=== PATIENT | female | born 2000 | race Caucasian/White ===

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

== ENCOUNTER 2018-03-18 21:02 | Emergency (ER) | payer MEDICAID ==
[~2018-03-18] VITALS: Ht 157.5 cm; Wt 49.9 kg
[~2018-03-18 21:02] MED LIST changes: +TYLENOL EXTRA500 MG ORAL
--- NOTE | 2018-03-18 21:26 | NUR ---
ED Nurse Note: Not in WR.
--- NOTE | 2018-03-18 22:06 | Emergency Room Report ---
History of Present Illness General Chief Complaint: Abdominal Pain Source: Patient Present Illness HPI Patient presents with suprapubic pain and being told that someone she was with his is being treated for either gonorrhea or chlamydia. She has a slight vaginal discharge. The pain is rated 8/10. Her last period was March 03 and was normal for her. She denies any dysuria. She's never been before. She denies prior exposure to sexually transmitted diseases. There is no skin rashes, fevers, chills. No upper respiratory infection at this time. No joint pain, throat pain, eye discharge. Allergies: Coded Allergies: No Known Allergies (Unverified , 01/20/16) Patient History Past Medical History: see triage record Social History: Reports: smoking Social History Narrative At home and allegedly not employed Last Menstrual Period: 03/03/18 Now: No : 0 Reviewed Nursing Documentation: PMH: Agreed; PSxH: Agreed Nursing Documentation-PMH Past Medical History: No Stated History Hx Hypertension: Yes Hx Asthma: Yes Review of Systems All Other Systems: negative except mentioned in HPI Physical Exam Vital Signs Date Time Temp Pulse Resp B/P (MAP) Pulse Ox O2 Delivery O2 Flow Rate FiO2 03/18/18 21:14 98.2 84 16 147/96 96 Room Air Sp02 EP Interpretation: reviewed, normal General Appearance: well appearing, no apparent distress, GCS 15 Head: normocephalic, atraumatic Eyes: bilateral eye normal inspection, bilateral eye PERRL ENT: hearing grossly normal, normal voice Neck: full range of motion, supple Respiratory: no respiratory distress, speaking full sentences Cardiovascular #1: regular rate, rhythm Cardiovascular #2: 2+ radial (R) Gastrointestinal: no guarding, no rebound, tenderness - Suprapubic Genitourinary: no CVA tenderness, bladder normal, os closed, uterus normal, other - Foul odor and white discharge, no cervical motion tenderness Musculoskeletal: back normal, digits/nails normal, no calf tenderness Neurologic: alert, oriented x3, normal gait, grossly normal Psychiatric: mood/affect normal Skin: no rash, other - Tattoos Medical Decision Making Diagnostic Impression: Primary Impression: Exposure to STD Additional Impression: Trichomonal infection ER Course Patient presents after being exposed to sexually transmitted disease with lower abdominal pain. Exam excludes pelvic inflammatory disease. Differential includes chlamydia, gonorrhea amongst others. In addition we need to exclude urinary tract infection and . Urinalysis and wet mount ordered. Due to the history and the patient will be treated with Rocephin and azithromycin. Urinalysis and wet mount consistent with trichomonas and possible yeast. Metronidazole given in the emergency department. Patient is improved with treatment. Discussed the need for follow-up and also for use of barrier protection during intercourse. Patient is improved and questions answered with emphasis on follow-up. Patient stable for outpatient observation and treatment. Laboratory Tests Test 03/18/18 21:53 Urine Color Pale yellow Urine Appearance Clear Urine pH 5 (4.5-8.0) Urine Specific Crowley 1.025 (1.005-1.035) Urine Protein Negative (NEGATIVE) Urine Glucose (UA) Negative (NEGATIVE) Urine Ketones 1+ (NEGATIVE) H Urine Blood Negative (NEGATIVE) Urine Nitrite Negative (NEGATIVE) Urine Bilirubin Negative (NEGATIVE) Urine Urobilinogen 1 MG/DL (0.0-1.0) H Urine Leukocyte Esterase 3+ (NEGATIVE) H Urine RBC 2-4 /HPF (0 - 2) H Urine WBC 10-15 /HPF (0 - 2) H Urine Squamous Epithelial Cells Few /LPF (NONE/OCC) Urine Bacteria Moderate /HPF (NONE) H Urine Trichomonas Few /HPF (NONE) H Urine Yeast Few /HPF (NONE) H Urine HCG, Qualitative Negative (NEGATIVE) Chlamydia trachomatis RNA Pending Neisseria gonorrhoeae RNA Pending Microbiology Date/Time Source Procedure Growth Status 03/18/18 22:10 Vaginal Wet Prep - Final Complete Last Vital Signs Date Time Temp Pulse Resp B/P (MAP) Pulse Ox O2 Delivery O2 Flow Rate FiO2 03/19/18 00:03 98.2 69 16 145/93 99 Room Air 03/19/18 00:03 99 Status: improved Disposition: HOME, SELF-CARE Condition: Improved Scripts Clotrimazole (GYNE-LOTRIMIN*) 45 Gm Cream.appl 1 APPLIC VG QHS, #45 GM 0 Refills Prov: Gutierrez Campbell MD 03/18/18 Metronidazole* (FLAGYL*) 500 Mg Tablet 500 MG ORAL BID, #14 TAB Prov: Gutierrez Campbell MD 03/18/18 Gutierrez Campbell MD Mar 18, 2018 22:06
[2018-03-18 22:08] VITALS: BP 147/96
[2018-03-18 22:11] LABS: BILIRUBIN, URINE NEGATIVE (NEGATIVE); COLOR,URINE PALE YELLOW; GLUCOSE, URINE (UA) NEGATIVE (NEGATIVE); KETONES,URINE 1+ (NEGATIVE); LEUKOCYTE ESTERASE ,URINE 3+ (NEGATIVE); NITRITE,URINE NEGATIVE (NEGATIVE); PH,URINE 5 (4.5-8.0); PROTEIN,URINE NEGATIVE (NEGATIVE); UROBILINOGEN,URINE 1 MG/DL (0.0-1.0)
[2018-03-18 22:12] LABS: APPEARANCE,URINE CLEAR
[2018-03-18] MEDS ORDERED: Lidocaine 1% MPF 10mg/ml 5ml INJ ONE (22:15)
[2018-03-18] MEDS ORDERED: Azithromycin 250mg tab ORAL ONE (22:15)
--- NOTE | 2018-03-18 22:16 | NUR ---
ED Nurse Note: Pelvic exam done by Dr. Campbell with this nurse in attendance, pt tolerated well; wet mount spec to lab.
--- NOTE | 2018-03-18 22:18 | NUR ---
ED Nurse Note: Patient is here for STD check , no symptoms.
[2018-03-18] MEDS ORDERED: metroNIDAZOLE 500mg tab ORAL ONE (23:00)
[2018-03-18] MEDS ORDERED: METRONIDAZOLE500 MG ORAL (23:36)
[2018-03-18] MEDS ORDERED: GYNE-LOTRIMIN45 GM VG (23:36)
[2018-03-19 00:03] VITALS: BP_SYST 145; BP_SYST 147; BP_DIAS 93; BP_DIAS 96
--- NOTE | 2018-03-19 00:04 | NUR ---
ED Nurse Note: PT is medically cleared per ERMD order. pt is stable for transfer. pt status condition and vital signs are reported to ERMD prior to DC. pt vital signs are stable. pt is alert and oriented times 4. pt left with all belongings, including DC ntoes and prescriptions. pt was able to teach back and understands DC notes and prescription. pt is instructed to follow up with primary MD as soon as possible, pt is instructed to return to ER if any variance in condition. ID band removed. pt is able to ambulate. pt is alert and oriented times 4. pt is stable for DC as per ERMD orders.
== END 2018-03-19 00:16 | disposition home or self-care (01) ==
LOC: EMR 21:56
DX: Z20.2 Contact with and (suspected) exposure to infections with a predominantly sexual mode of transmission (principal); A59.9 Trichomoniasis, unspecified; I10 Essential (primary) hypertension; J45.909 Unspecified asthma, uncomplicated
CPT/HCPCS: 81003; 81025; 87086; 87210; 87491; 87590; 96372; 96374; 99284; J0696; Q0144

== ENCOUNTER 2018-10-08 12:45 | Emergency (ER) | payer MEDICAID ==
[~2018-10-08] VITALS: Ht 154.9 cm; Wt 49.9 kg
[~2018-10-08 12:45] MED LIST changes: +GYNE-LOTRIMIN45 GM VG; +METRONIDAZOLE500 MG ORAL
[2018-10-08 12:47] VITALS: BP 136/94
--- NOTE | 2018-10-08 12:48 | NUR ---
ED Nurse Note: Patient walked in to ER due to lower abdominal pain and vaginal discharge x 1 week. Patient describes her discharge as blood clots. Patient went to [place] ER and diagnosed with Trichomoniasis and prescribed her couple of antibiotics. Alert and oriented x4, verbally reasponsive. Afebrile.
[2018-10-08] MEDS ORDERED: NKM (12:51)
--- NOTE | 2018-10-08 13:02 | Emergency Room Report ---
History of Present Illness General Chief Complaint: Female Urogenital Problems Source: Patient Present Illness HPI 18 YO Female presents to the ED c/o persistent clear-whitish vaginal d/c x 1 week s/p taking single dose treatment for Trich last week. Pt. reports symptoms have not changed. She denies odor. Reports 5/10 in severity abdominal pain that is described as a dull ache without tenderness. Denies dysuria, hematuria or . She reports she is currently on her cycle. She states she did begin having some vaginal itching without obvious rash or genital lesions. She denies adnexal pain/tenderness, joint pain or swollen tender lymph nodes. She Denies suspicion of STI, she just tested negative and has not had intercourse since testing. No aggravating or relieving factors at this time. Denies N/V/F/C. Denies constipation or diarrhea. Allergies: Coded Allergies: No Known Allergies (Unverified , 01/20/16) Patient History Past Medical History: see triage record Past Surgical History: none Pertinent Family History: none Last Menstrual Period: 09/17/18 Now: No Reviewed Nursing Documentation: PMH: Agreed; PSxH: Agreed Nursing Documentation-PMH Past Medical History: No History, Except For Hx Hypertension: Yes Hx Asthma: Yes Review of Systems All Other Systems: negative except mentioned in HPI Physical Exam Vital Signs Date Time Temp Pulse Resp B/P (MAP) Pulse Ox O2 Delivery O2 Flow Rate FiO2 10/08/18 12:46 98.2 96 16 136/94 (108) 98 Room Air Sp02 EP Interpretation: reviewed, normal General Appearance: no apparent distress, alert, GCS 15, non-toxic Head: normocephalic, atraumatic Eyes: bilateral eye normal inspection, bilateral eye PERRL ENT: hearing grossly normal, normal voice Neck: full range of motion Respiratory: lungs clear, normal breath sounds, speaking full sentences Cardiovascular #1: regular rate, rhythm Gastrointestinal: normal bowel sounds, non tender, soft, non-distended Genitourinary: normal inspection, no CVA tenderness, adnexa normal, os closed, other - Negative CMT. pt. currently on cycle, dark blood in the vaginal vault, no obivous d/c. no external genital lesions, no LAD. Musculoskeletal: gait/station normal, normal range of motion, non-tender Neurologic: alert, oriented x3, responsive, motor strength/tone normal, sensory intact, speech normal, grossly normal Psychiatric: judgement/insight normal Lymphatic: no adenopathy Medical Decision Making PA Attestation Dr. Slater is my supervising Physician whom patient management has been discussed with. Diagnostic Impression: Primary Impression: Leukorrhea, vaginal, noninfectious ER Course 18 YO Female presents to the ED c/o persistent clear-whitish vaginal d/c x 1 week s/p taking single dose treatment for Trich last week. Pt. reports symptoms have not changed. She denies odor. Reports 5/10 in severity abdominal pain that is described as a dull ache without tenderness. Denies dysuria, hematuria or . She reports she is currently on her cycle. She states she did begin having some vaginal itching without obvious rash or genital lesions. She denies adnexal pain/tenderness, joint pain or swollen tender lymph nodes. She Denies suspicion of STI, she just tested negative and has not had intercourse since testing. No aggravating or relieving factors at this time. Denies N/V/F/C. Denies constipation or diarrhea. Ddx considered but are not limited to UTi , Pyelo, STI, Stone, Cystitis, , ectopic, PID, or vaginitis just to name a few. Vital signs: are WNL, pt. is afebrile H&PE are most consistent with: Vaginitis -- trich, vs. BV, vs yeast, or normal leukorrhea ORDERS: - UA labs are attached -- RBC's consistent with being on cycle. -Urine UCG: Negative - Wet Mount : Negative for clue, trich or yeast, moderate epithelial, RBC's and WBC's--- most likely leukorrhea but will tx with single dose diflucan for itching symptoms and possible yeast vaginitis despite no yeast on wet mount. ED INTERVENTIONS: - None required at this time. -I do not identify an emergent condition at this time. With current presentation , pt. is stable for close outpatient follow up and conservative treatment. D/ w pt. to return promptly to ED with worsening or new symptoms.- Pt. verbalizes' understanding and agreement with proposed treatment plan. DISCHARGE: At this time pt. is stable for d/c to home. Will provide printed patient care instructions, and any necessary prescriptions. Care plan and follow up instructions have been discussed with the patient prior to discharge. discussed with the patient prior to discharge. Labs Test 10/08/18 13:00 Urine Color Pale yellow Urine Appearance Clear Urine pH 6 (4.5-8.0) Urine Specific Campbell 1.015 (1.005-1.035) Urine Protein Negative (NEGATIVE) Urine Glucose (UA) Negative (NEGATIVE) Urine Ketones Negative (NEGATIVE) Urine Blood 5+ (NEGATIVE) Urine Nitrite Negative (NEGATIVE) Urine Bilirubin Negative (NEGATIVE) Urine Urobilinogen Normal MG/DL (0.0-1.0) Urine Leukocyte Esterase Negative (NEGATIVE) Urine RBC 10-15 /HPF (0 - 2) Urine WBC 0 /HPF (0 - 2) Urine Squamous Epithelial Cells Moderate /LPF (NONE/OCC) Urine Bacteria Few /HPF (NONE) Urine HCG, Qualitative Negative (NEGATIVE) Last Vital Signs Date Time Temp Pulse Resp B/P (MAP) Pulse Ox O2 Delivery O2 Flow Rate FiO2 10/08/18 12:46 98.2 96 16 136/94 (108) 98 Room Air Disposition: HOME, SELF-CARE Condition: Stable Patient Instructions: Vaginitis Additional Instructions: Take medications as directed. Follow up with a Primary Care Provider in 3-5 days, even if your symptoms have resolved. Return sooner to ED if new symptoms occur, or current symptoms become worse. - Please note that this Emergency Department Report was dictated using [employer] driver technology software, occasionally this can lead to erroneous entry secondary to interpretation by the dictation equipment. Zena Trinh Oct 08, 2018 13:02
[2018-10-08 13:47] LABS: APPEARANCE,URINE CLEAR; BILIRUBIN, URINE NEGATIVE (NEGATIVE); COLOR,URINE PALE YELLOW; GLUCOSE, URINE (UA) NEGATIVE (NEGATIVE); KETONES,URINE NEGATIVE (NEGATIVE); LEUKOCYTE ESTERASE ,URINE NEGATIVE (NEGATIVE); NITRITE,URINE NEGATIVE (NEGATIVE); PH,URINE 6 (4.5-8.0); PROTEIN,URINE NEGATIVE (NEGATIVE); UROBILINOGEN,URINE NORMAL MG/DL (0.0-1.0)
[2018-10-08 14:15] VITALS: BP 126/88
[2018-10-08] MEDS ORDERED: DIFLUCAN200 MG ORAL (14:22)
[2018-10-08 14:36] VITALS: BP 126/88
--- NOTE | 2018-10-08 14:36 | NUR ---
ED Nurse Note: Pt cleared by ERMD for discharge. DC instructions/prescription was given and explained to pt and verbalized understanding of teachings. All medical deviecs such as ID band removed. Pt is AAO x4, ambulatory and left with all personal belongings.
== END 2018-10-08 14:36 | disposition home or self-care (01) ==
LOC: EMR 13:09
DX: N89.8 Other specified noninflammatory disorders of vagina (principal); J45.909 Unspecified asthma, uncomplicated; I10 Essential (primary) hypertension
CPT/HCPCS: 81003; 81025; 87210; 99283

== ENCOUNTER 2019-01-19 12:13 | Emergency (ER) | payer MEDICAID ==
[~2019-01-19] VITALS: Ht 154.9 cm; Wt 40.8 kg
[~2019-01-19 12:13] MED LIST changes: +DIFLUCAN200 MG ORAL; +NKM
[2019-01-19 12:20] VITALS: BP 177/121
--- NOTE | 2019-01-19 12:20 | NUR ---
ED Nurse Note: Pt brought into ER by friend for c/o cough, runny/bloody nose for the path month. Pt also c/o chest pressure and congestion. She notes mild pain only on inspiration. Pt is ambulatory, awake alert and oriented x4, breathing is unlabored. Pt connected to rn cardiac cath and placed in gown.
[2019-01-19] MEDS ORDERED: Omnipaque-300 100ml vial INJ PRN (12:30)
[2019-01-19] MEDS: Albuterol/Ipratropium 3ml neb HHN SCH ×4 (12:53→13:26)
[2019-01-19 13:02] LABS: EOSINOPHILS % (AUTO) 0.5 % (0.0-3.0); HEMATOCRIT 49.8 % (37.0-47.0); HEMOGLOBIN 16.7 G/DL (12.0-16.0); MEAN CORPUSCULAR VOLUME 89 FL (80-99); MONOCYTES % (AUTO) 8.3 % (1.0-10.0); NEUTROPHILS % (AUTO) 65.2 % (45.0-75.0); PLATELET COUNT 312 K/UL (150-450); RED BLOOD COUNT 5.59 M/UL (4.20-5.40); RED CELL DISTRIBUTION WIDTH 13.4 % (11.6-14.8); WHITE BLOOD COUNT 5.1 K/UL (4.8-10.8)
[2019-01-19 13:03] LABS: APPEARANCE,URINE SLIGHTLY CLOUDY; BILIRUBIN, URINE 1+ (NEGATIVE); COLOR,URINE BROWN; GLUCOSE, URINE (UA) NEGATIVE (NEGATIVE); KETONES,URINE 1+ (NEGATIVE); LEUKOCYTE ESTERASE ,URINE 1+ (NEGATIVE); NITRITE,URINE POSITIVE (NEGATIVE); PH,URINE 5 (4.5-8.0); PROTEIN,URINE 2+ (NEGATIVE); UROBILINOGEN,URINE 1 MG/DL (0.0-1.0)
[2019-01-19 13:04] LABS: ANION GAP 12 mmol/L (5-15); BLOOD UREA NITROGEN 7 mg/dL (7-18); CARBON DIOXIDE 29 MMOL/L (21-32); CHLORIDE 99 MMOL/L (98-107); CREATININE 0.8 MG/DL (0.55-1.30); POTASSIUM 3.7 MMOL/L (3.5-5.1); SODIUM 140 MMOL/L (136-145)
[2019-01-19 13:15] LABS: ALANINE AMINOTRANSFERASE 30 U/L (12-78); ALBUMIN 4.7 G/DL (3.4-5.0); ALBUMIN/GLOBULIN RATIO 1.1 (1.0-2.7); ALKALINE PHOSPHATASE 95 U/L (46-116); ASPARTATE AMINO TRANSFERASE 43 U/L (15-37)
--- NOTE | 2019-01-19 14:21 | Diagnostic Imaging Report ---
Indication: Abdominal pain Technique: Continuous helical transaxial imaging of the abdomen and pelvis was obtained from the lung bases to the pubic symphysis during intravenous contrast administration. Coronal 2-D reformats were also obtained. Study obtained in a Siemens sensation [address] Automatic Exposure Control was utilized. Total Dose length Product (DLP): 454.[address] Dose Index Volume (CTDIvol): 8.4 mGy Comparison: None Findings: The lung bases are clear. The liver is hypodense consistent with fatty infiltration. Gallbladder is mildly distended. There is prominence of the wall of the right hemicolon extending through to the transverse colon and part of the descending colon. The findings somewhat suspicious for colitis. There is no significant inflammation outside of the colon and no evidence of pneumatosis or free air. There is no evidence of bowel obstruction. There is no abscess identified. A small right renal cyst is noted. Uterus is present. There are bilateral ovarian cysts. IMPRESSION: Possible colitis with prominence of the wall of the colon. Evaluation is somewhat limited as the colon is diffusely nondistended The CT scanner at [facility] is accredited by the [employer] and the scans are performed using dose optimization techniques as appropriate to a performed exam including Automatic Exposure control.
--- NOTE | 2019-01-19 14:32 | Diagnostic Imaging Report ---
Indication: Cough Comparison: None A single view chest radiograph was obtained. Findings: Cardiomediastinal appearance is within normal limits for age. The lungs are clear. Pulmonary vascularity is appropriate. The diaphragmatic contour is smooth and costophrenic angles are sharp. No pleural effusions are identified. The bones are unremarkable. Impression: No acute findings
--- NOTE | 2019-01-19 14:39 | NUR ---
pt resting comfortably, no distress at this time. Pt denies any pain currently.
[2019-01-19 14:40] VITALS: BP 151/97
--- NOTE | 2019-01-19 14:45 | Emergency Room Report ---
History of Present Illness General Chief Complaint: General Complaint Source: Patient Present Illness HPI 18-year-old female with no significant past medical history who is a daily tobacco smoker here complaining of 1 month of cough and congestion as well as chest pressure. Patient is actively wheezing, reports that she has history of asthma however does not use her inhaler. Patient denies any drug use, when I asked her question whether she does cocaine as she has been experiencing dry nasal septum and bleeding she pauses for 1 second and then replies no. Does admit to use of marijuana. Does admit that she drinks on daily basis, complains of diffuse abdominal pain, and continuous intrauterine bleeding x3 months. Denies dizziness and headache at this time. Denies chest pain shortness of breath at this time. Denies urinary symptoms. Has not taken medication for symptom relief. Patient later tells my nurse Melanie that patient went to [facility] few weeks ago and was told that she was poisoned by his substance. Patient is sitting comfortably however has elevated heart rate and elevated blood pressure. Denies any history of hypertension and taking medication for her symptoms. Allergies: Coded Allergies: No Known Allergies (Unverified , 01/20/16) Patient History Past Medical History: see triage record Past Surgical History: unable to obtain Pertinent Family History: none Last Menstrual Period: 10/17/18 Now: No Immunizations: UTD Reviewed Nursing Documentation: PMH: Agreed; PSxH: Agreed Nursing Documentation-PMH Past Medical History: No History, Except For Hx Hypertension: Yes Hx Asthma: Yes - BRONCHITIS Review of Systems All Other Systems: negative except mentioned in HPI Physical Exam Vital Signs Date Time Temp Pulse Resp B/P (MAP) Pulse Ox O2 Delivery O2 Flow Rate FiO2 01/19/19 12:17 98.2 120 15 159/114 (129) 94 Room Air 01/19/19 12:47 21 Sp02 EP Interpretation: abnormal - Elevated blood pressure and heart rate General Appearance: no apparent distress, alert, GCS 15, non-toxic Head: normocephalic, atraumatic Eyes: bilateral eye normal inspection, bilateral eye PERRL ENT: hearing grossly normal, normal pharynx, no angioedema, normal voice Neck: full range of motion, supple, thyroid normal, no meningismus, no bony tend, supple/symm/no masses Respiratory: chest non-tender, no rhonchi, no respiratory distress, no retraction, no accessory muscle use, speaking full sentences, wheezing - Diffuse wheezing Cardiovascular #1: regular rate, rhythm, no edema, no murmur, normal capillary refill Cardiovascular #2: 2+ carotid (R), 2+ carotid (L), 2+ radial (R), 2+ radial (L) , 2+ dorsalis pedis (R), 2+ dorsalis pedis (L) Gastrointestinal: normal bowel sounds, non tender, soft, no mass, no organomegaly, no peritonitis, no bruit, non-distended, no guarding, no hernia, no pulsatile mass, no rebound Rectal: deferred Genitourinary: no CVA tenderness Musculoskeletal: back normal, normal range of motion, no calf tenderness, gait/ station normal, non-tender Neurologic: alert, motor strength/tone normal, oriented x3, sensory intact, responsive, speech normal Psychiatric: normal inspection, judgement/insight normal, memory normal Skin: no rash Lymphatic: no adenopathy Medical Decision Making PA Attestation All my diagnosis and treatment plans were reviewed ad discussed with my supervising physician Dr. Cullen Diagnostic Impression: Primary Impression: Acute bronchitis, bacterial Additional Impressions: DUB (dysfunctional uterine bleeding) Cocaine use UTI (urinary tract infection) ER Course 18-year-old female with no significant past medical history who is a daily tobacco smoker here complaining of 1 month of cough and congestion as well as chest pressure. Patient is actively wheezing, reports that she has history of asthma however does not use her inhaler. Patient denies any drug use, when I asked her question whether she does cocaine as she has been experiencing dry nasal septum and bleeding she pauses for 1 second and then replies no. Does admit to use of marijuana. Does admit that she drinks on daily basis, complains of diffuse abdominal pain, and continuous intrauterine bleeding x3 months. Denies dizziness and headache at this time. Denies chest pain shortness of breath at this time. Denies urinary symptoms. Has not taken medication for symptom relief. Patient later tells my nurse Melanie that patient went to [facility] few weeks ago and was told that she was poisoned by his substance. Patient is sitting comfortably however has elevated heart rate and elevated blood pressure. Denies any history of hypertension and taking medication for her symptoms. Ddx considered but are not limited to: bronchitis, PNA, URI viral, bacterial bronchitis, anemia, ectopic , dysfunctional uterine bleeding Vital signs: are WNL, pt. is afebrile H&PE are most consistent with: Acute bronchitis bacterial due to smoking tobacco , cocaine use, tachycardia secondary to use, DU B, incidental finding of UTI ORDERS: Chest pain work-up, abdominal CT scan, azithromycin, Phenergan, albuterol, ED INTERVENTIONS: Prednisone, albuterol ipratropium treatment, Rocephin, NS bolus, Zofran DISCHARGE: At this time pt. is stable for d/c to home. Will provide printed patient care instructions, and any necessary prescriptions. Care plan and follow up instructions have been discussed with the patient prior to discharge. Patient heart rate remained fluctuating and reducing on the course of her visit to the emergency room. Elevated heart rate secondary to cocaine use. Patient no distress, and after consulting with my supervising physician Dr. Perez, it was decided to discharge the patient, and have her follow-up with her primary care provider. If worsening symptoms return to the emergency room. EKG Diagnostic Results Rate: tachycardiac Rhythm: NSR ST Segments: no acute changes Other Impression No acute ST changes Chest X-Ray Diagnostic Results Chest X-Ray Diagnostic Results : Chest X-Ray Ordered: Yes # of Views/Limited/Complete: 1 View Indication: Shortness of Breath EP Interpretation: Yes ANUPAM Xray: Interpretation reviewed, by supervising MD, and agrees with findings. Interpretation: no consolidation, no effusion, no pneumothorax Impression: No acute disease Electronically Signed by: Lucas Mcbride PA-C CT/MRI/US Diagnostic Results CT/MRI/US Diagnostic Results : Imaging Test Ordered: CT abdomen pelvis Impression Within normal limits Last Vital Signs Date Time Temp Pulse Resp B/P (MAP) Pulse Ox O2 Delivery O2 Flow Rate FiO2 01/19/19 13:54 102 12 99 01/19/19 13:27 Room Air 21 01/19/19 12:20 98.2 177/121 Disposition: HOME, SELF-CARE Condition: Stable Scripts Albuterol Sulfate (VENTOLIN HFA) 18 Gm Hfa.aer.ad 2 PUFFS INH EVERY 6 HOURS, #18 GM 0 Refills Prov: Lucas Sauceda 01/19/19 Promethazine Hcl (PROMETHAZINE HCL*) 6.25 Mg/5 Ml Syrup 5 ML ORAL Q6H, #120 ML 0 Refills Prov: Lucas Sauceda 01/19/19 Azithromycin* (ZITHROMAX*) 250 Mg Tablet 250 MG ORAL DAILY, #6 TAB 0 Refills Take two tables once daily for 1 day, then one tablet once daily for 4 days. Prov: Lucas Sauceda 01/19/19 Referrals: NOT CHOSEN IPA/MD,REFERRING (PCP) Patient Instructions: Acute Bronchitis, [id number], Dysfunctional Uterine Bleeding, Stimulant Use Disorder-Cocaine, Urinary Tract Infection, [id number] Additional Instructions: Take medication as directed, follow-up with your primary care provider, if worsening symptoms return to the emergency room Lucas Sauceda Jan 19, 2019 14:45
[2019-01-19] MEDS ORDERED: VENTOLIN HFA18 GM INH (14:46)
[2019-01-19] MEDS ORDERED: ZITHROMAX250 MG ORAL (14:46)
[2019-01-19] MEDS ORDERED: PROMETHAZI6.25 MG/1 ORAL (14:46)
--- NOTE | 2019-01-19 15:54 | NUR ---
ED Nurse Note: ANUPAM Zavala, confirmed with mixed ceftriaxone 250mg mixed with 50ml of NS and give 100ml/hr.
[2019-01-19] MEDS ORDERED: NS 250 ML IVPB ONE (16:00)
[2019-01-19] MEDS ORDERED: cefTRIAXone 1 GM in NS 55 ML IVPB ONE (16:15)
[2019-01-19 17:26] VITALS: BP 124/82
--- NOTE | 2019-01-19 17:26 | NUR ---
ER DISCHARGE NOTE: Patient is cleared to be discharged per ERMD, pt is aox4, on room air, with stable vital signs. pt was given dc and prescription instructions, pt was able to verbalize understanding, pt id band and iv site removed without complications. pt is able to ambulate with steady gait. pt took all belongings.
--- NOTE | 2019-01-20 15:07 | Cardiology Report ---
APPROVED REPORT EKG Measurement Heart [id number] Sinus rhythm with sinus arrhythmia with short SD Anterior infarct, age undetermined Prolonged QT Abnormal ECG
== END 2019-01-19 17:26 | disposition home or self-care (01) ==
LOC: EMR 13:00
DX: J20.9 Acute bronchitis, unspecified (principal); N93.8 Other specified abnormal uterine and vaginal bleeding; N39.0 Urinary tract infection, site not specified; F14.90 Cocaine use, unspecified, uncomplicated
CPT/HCPCS: 36415; 71045; 74177; 80053; 80307; 81003; 81025; 83690; 83880; 84484; 85025; 85610; 85730; 86850; 86900; 86901; 93005; 94640; 94664; 96361; 96374; 96375; G0480; J0696; J2405; J7030; J7512; Q9967; Z7502; 99284; J7620

== ENCOUNTER 2019-04-30 15:30 | Emergency (ER) | payer MEDICAID ==
[~2019-04-30] VITALS: Ht 154.9 cm; Wt 56.2 kg
[~2019-04-30 15:30] MED LIST changes: +PROMETHAZI6.25 MG/1 ORAL; +ZITHROMAX250 MG ORAL
--- NOTE | 2019-04-30 15:41 | NUR ---
ED Nurse Note: PT AMBULATED INTO ED, REPORTS OF HAVING DRY COUGH WITH NASAL CONGESTION X1 WEEK, DENIES FEVER, RECENT TRAVEL. BREATHING NORMAL/EVEN/UNLABORED. SKIN WARM/DRY/INTACT. HX ASTHMA AND BRONCHITIS. NAD NOTED.
[2019-04-30 15:43] VITALS: BP 157/110
--- NOTE | 2019-04-30 15:47 | Emergency Room Report ---
History of Present Illness General Chief Complaint: Upper Respiratory Illness Source: Patient (Zena Trinh) Present Illness HPI 19-year-old female presents to the emergency department complaining of 8 out of 10 in severity cough, nasal and chest congestion, rhinorrhea and pain in the chest wall coughing x 1 week. Patient denies fevers or chills. She states she did not receive this years flu vaccine. She denies recent travel and denies having any contact with persons under investigation or who have tested positive for nCov-19. She denies headache, neck pain/stiffness, photophobia or sore throat. She reports body aches and fatigue. She has past medical history of high blood pressure, mitral valve prolapse, asthma/bronchitis and states that she is a daily smoker. Patient also relates having some illicit drug use and EtOH as well. She denies dyspnea, shortness of breath, swelling of the lower extremities or orthopnea. Pt. denies suspicion of cardiac etiology. She reports pain is all throughout her rib cage and both sides of the upper back only when coughing. She denies pain at rest. She denies exertional dyspnea. She reports she used to have an inhaler but she lost it. She states she has had similar sx's in the past which respond to breathing treatments. She denies . She denies any other aggravating or relieving factors at this time. (Zena Trinh) Allergies: Coded Allergies: No Known Allergies (Unverified , 01/20/16) Patient History Past Medical History: see triage record, HTN, other - MVP Past Surgical History: none Pertinent Family History: none Social History: Reports: smoking - daily Last Menstrual Period: 04/28/19 Now: No : 0 Reviewed Nursing Documentation: PMH: Agreed; PSxH: Agreed (Zena Trinh) Nursing Documentation-PMH Past Medical History: No History, Except For Hx Cardiac Problems: Yes - mitral valve prolapse Hx Hypertension: Yes Hx Asthma: Yes - bronchitis (Zena Trinh) Review of Systems All Other Systems: negative except mentioned in HPI (Zena Trinh) Physical Exam Vital Signs Date Time Temp Pulse Resp B/P (MAP) Pulse Ox O2 Delivery O2 Flow Rate FiO2 04/30/19 15:32 98.2 88 19 157/110 (126) 97 Room Air Sp02 EP Interpretation: reviewed, normal General Appearance: no apparent distress, alert, GCS 15, non-toxic Head: normocephalic, atraumatic Eyes: bilateral eye normal inspection, bilateral eye PERRL ENT: hearing grossly normal, normal pharynx, normal voice, TMs + canals normal , uvula midline, nasal congestion Neck: full range of motion Respiratory: chest non-tender, no rhonchi, no respiratory distress, no accessory muscle use, speaking full sentences, wheezing - expiratory- bilaterally Cardiovascular #1: regular rate, rhythm, no edema, other - unable to ascultate discernable murmur, faint click is heard. Gastrointestinal: normal bowel sounds, non tender, soft Rectal: deferred Genitourinary: normal inspection Musculoskeletal: back normal, normal range of motion, gait/station normal, non- tender Neurologic: alert, motor strength/tone normal, oriented x3, sensory intact, responsive, speech normal Psychiatric: judgement/insight normal Skin: normal color, normal inspection Lymphatic: no adenopathy (Zena Trinh) Medical Decision Making PA Attestation Dr. Campbell is my supervising Physician whom patient management has been discussed with. (Zena Trinh) Diagnostic Impression: Primary Impression: Acute bronchitis Qualified Codes: J20.9 - Acute bronchitis, unspecified ER Course 19-year-old female presents to the emergency department complaining of 8 out of 10 in severity cough, nasal and chest congestion, rhinorrhea and pain in the chest wall coughing x 1 week. Patient denies fevers or chills. She states she did not receive this years flu vaccine. She denies recent travel and denies having any contact with persons under investigation or who have tested positive for nCov-19. She denies headache, neck pain/stiffness, photophobia or sore throat. She reports body aches and fatigue. She has past medical history of high blood pressure, mitral valve prolapse, asthma/bronchitis and states that she is a daily smoker. Patient also relates having some illicit drug use and EtOH as well. She denies dyspnea, shortness of breath, swelling of the lower extremities or orthopnea. Pt. denies suspicion of cardiac etiology. She reports pain is all throughout her rib cage and both sides of the upper back only when coughing. She denies pain at rest. She denies exertional dyspnea. She reports she used to have an inhaler but she lost it. She states she has had similar sx's in the past which respond to breathing treatments. She denies . She denies any other aggravating or relieving factors at this time. Ddx considered but are not limited to URI, pneumonia, PE, strep pharyngitis, meningitis. Vital signs: Pt.is afebrile, non tachycardic and with normal RR and normal pulse ox. PT. does have elevated BP. H&PE are most consistent with bronchitis, PT. has cardiac RF's but other likely diagnoses of URI/bronchitis. ORDERS: -CXR: WNL ED INTERVENTIONS: -Albuterol HHN- wheezing has improved scant amount still present. -Prednisone PO DISCHARGE: At this time pt. is stable for d/c to home. Will provide printed patient care instructions, and any necessary prescriptions. Care plan and follow up instructions have been discussed with the patient prior to discharge. (Zena Trinh) Chest X-Ray Diagnostic Results Chest X-Ray Diagnostic Results : Chest X-Ray Ordered: Yes # of Views/Limited/Complete: 1 View Indication: Shortness of Breath EP Interpretation: No PA Xray: Interpretation reviewed, by supervising MD, and agrees with findings. Interpretation: no consolidation, no effusion, no pneumothorax, no acute cardiopulmonary disease Impression: No acute disease Electronically Signed by: Zena Trinh PA-C (Zena Trinh) Chest X-Ray Diagnostic Results : Electronically Signed by: Guicho Simon documentation of Xray reviewed by me and is accurate, Gutierrez Campbell MD (Gutierrez Campbell MD) Last Vital Signs Date Time Temp Pulse Resp B/P (MAP) Pulse Ox O2 Delivery O2 Flow Rate FiO2 04/30/19 15:43 88 19 Room Air 04/30/19 15:43 98.2 157/110 97 Status: improved - wheezes improved. (Zena Trinh) Disposition: HOME, SELF-CARE Condition: Stable Scripts Albuterol Sulfate* (ALBUTEROL SULFATE MDI*) 8.5 Gm Hfa.aer.ad 2 PUFF INH Q3H, #1 INH 0 Refills Prov: Zena Trinh 04/30/19 Prednisone* (PREDNISONE*) 20 Mg Tablet 20 MG ORAL DAILY for 5 Days, #5 TAB 0 Refills Prov: Zena Trinh 04/30/19 D-Methorphan Hb/Prometh Hcl* (PROMETHAZINE-DM SYRUP*) 118 Ml Syrup 5 ML ORAL Q6H PRN for For Cough, #118 ML 0 Refills Prov: Zena Trinh 04/30/19 Acetaminophen* (TYLENOL EXTRA STRENGTH*) 500 Mg Tablet 500 MG ORAL Q6H PRN for Mild Pain/Temp > 100.5, #20 TAB 0 Refills Prov: Zena Trinh 04/30/19 Referrals: [facility] Patient Instructions: Acute Bronchitis, [id number] Additional Instructions: Take medications as directed. - Stop smoking while you are sick and having respiratory symptoms. Follow up with a Primary Care Provider in 3-5 days, even if your symptoms have resolved. --Please review list of primary care clinics, if you do not already have a primary care provider Return sooner to ED if new symptoms occur, or current symptoms become worse. - Please note that this Emergency Department Report was dictated using [employer] technology software, occasionally this can lead to erroneous entry secondary to interpretation by the dictation equipment. Zena Trinh Apr 30, 2019 15:47 Gutierrez Campbell MD May 02, 2019 05:41
[2019-04-30] MEDS ORDERED: Albuterol ud Inhalation HHN ONE (16:00)
--- NOTE | 2019-04-30 16:35 | Diagnostic Imaging Report ---
Indication: Chest pain Technique: One view of the chest Comparison: none Findings: Lungs and pleural spaces are clear. The heart size is normal. There is no significant interim change Impression: Negative
[2019-04-30] MEDS ORDERED: TYLENOL EXTRA500 MG ORAL (16:59)
[2019-04-30] MEDS ORDERED: PROMETHAZINE-D118 ML ORAL ×3 (16:59→17:11)
[2019-04-30] MEDS ORDERED: PREDNISONE20 MG ORAL ×3 (16:59→17:11)
[2019-04-30] MEDS ORDERED: ALBUTEROL SULF8.5 GM INH ×3 (16:59→17:11)
[2019-04-30 17:02] VITALS: BP 157/110
--- NOTE | 2019-04-30 17:07 | NUR ---
ED Nurse Note: Pt cleared by health care Provider for discharge. DC instructions/prescription was given and explained to pt and verbalized understanding of teachings. All medical deviecs such as ID band removed. Pt is AAO x4, ambulatory and left with all personal belongings.
== END 2019-04-30 17:14 | disposition home or self-care (01) ==
LOC: EMR 16:45
DX: J20.9 Acute bronchitis, unspecified (principal); I10 Essential (primary) hypertension; J45.909 Unspecified asthma, uncomplicated; F17.200 Nicotine dependence, unspecified, uncomplicated; I34.1 Nonrheumatic mitral (valve) prolapse
CPT/HCPCS: 71045; J7512; Z7502; 99284

== ENCOUNTER 2019-06-01 16:57 | Emergency (ER) | payer MEDICAID ==
[~2019-06-01] VITALS: Ht 162.6 cm; Wt 61.2 kg
[~2019-06-01 16:57] MED LIST changes: +ALBUTEROL SULF8.5 GM INH; +PROMETHAZINE-D118 ML ORAL
[2019-06-01 17:17] VITALS: BP 126/73
--- NOTE | 2019-06-01 17:20 | NUR ---
ED Nurse Note: pt walked in to ER from home due to lower abdominal pain x3 days without N/V/D. pt aao x4 and ambulatory. cooperative but grimacing for abdominal pain. skin clean and intact. no cardiac or pulmonary distress noted at this time.
--- NOTE | 2019-06-01 17:22 | NUR ---
ED Nurse Note: pt also c/o chills. temp 99.8F.
--- NOTE | 2019-06-01 17:41 | NUR ---
ED Nurse Note: blood and urine sent to lab.
[2019-06-01 17:52] LABS: APPEARANCE,URINE SLIGHTLY CLOUDY; BILIRUBIN, URINE NEGATIVE (NEGATIVE); COLOR,URINE PALE YELLOW; GLUCOSE, URINE (UA) NEGATIVE (NEGATIVE); KETONES,URINE 2+ (NEGATIVE); LEUKOCYTE ESTERASE ,URINE 3+ (NEGATIVE); NITRITE,URINE POSITIVE (NEGATIVE); PH,URINE 6 (4.5-8.0); PROTEIN,URINE 2+ (NEGATIVE); UROBILINOGEN,URINE NORMAL MG/DL (0.0-1.0)
[2019-06-01 17:54] LABS: BASOPHILS % (AUTO) 0.9 % (0.0-2.0); EOSINOPHILS % (AUTO) 0.2 % (0.0-3.0); HEMATOCRIT 41.5 % (37.0-47.0); HEMOGLOBIN 13.5 G/DL (12.0-16.0); LYMPHOCYTES % (AUTO) 8.2 % (20.0-45.0); MEAN CORPUSCULAR VOLUME 91 FL (80-99); MONOCYTES % (AUTO) 6.4 % (1.0-10.0); NEUTROPHILS % (AUTO) 84.3 % (45.0-75.0); PLATELET COUNT 274 K/UL (150-450); RED BLOOD COUNT 4.56 M/UL (4.20-5.40); RED CELL DISTRIBUTION WIDTH 12.1 % (11.6-14.8); WHITE BLOOD COUNT 16.3 K/UL (4.8-10.8)
[2019-06-01 18:10] LABS: ANION GAP 10 mmol/L (5-15); BLOOD UREA NITROGEN 5 mg/dL (7-18); CALCIUM 9.6 MG/DL (8.5-10.1); CARBON DIOXIDE 26 MMOL/L (21-32); CHLORIDE 99 MMOL/L (98-107); CREATININE 0.8 MG/DL (0.55-1.30); SODIUM 135 MMOL/L (136-145)
[2019-06-01 18:15] LABS: ALANINE AMINOTRANSFERASE 22 U/L (12-78); ALBUMIN 4.6 G/DL (3.4-5.0); ALBUMIN/GLOBULIN RATIO 1.4 (1.0-2.7); ALKALINE PHOSPHATASE 84 U/L (46-116); ASPARTATE AMINO TRANSFERASE 15 U/L (15-37); BILIRUBIN,TOTAL 0.5 MG/DL (0.2-1.0)
[2019-06-01] MEDS ORDERED: Omnipaque-300 100ml vial INJ PRN (18:15)
[2019-06-01] MEDS ORDERED: cefTRIAXone 1 GM in NS 55 ML IVPB ONE (18:45)
--- NOTE | 2019-06-01 18:45 | NUR ---
ED Nurse Note: pt drank a half of orall contrast and radiology made aware.
--- NOTE | 2019-06-01 19:11 | Emergency Room Report ---
History of Present Illness General Chief Complaint: Abdominal Pain Source: Patient (Zena Trinh) Present Illness HPI 19 YO female presents to the ED C/O 6/10 in severity right sided abdominal pain. She denies N/V/F/C, constipation or diarrhea. She denies dysuria, hematuria or frequency. Pt. reports she is currently on her period. She denies or suspicion of . She reports some lower abdominal tenderness. She denies low back pain. She reports no relief with Motrin or BC powder at home. (Zena Trinh) Allergies: Coded Allergies: No Known Allergies (Unverified , 01/20/16) COVID-19 Screening Contact w/high risk pt: No Recent Travel to affected area: No Experienced COVID-19 symptoms?: No (Zena Trinh) Patient History Past Medical History: see triage record Past Surgical History: none Pertinent Family History: none Now: No - 05/30/19 Reviewed Nursing Documentation: PMH: Agreed; PSxH: Agreed (Zena Trinh) Nursing Documentation-PMH Hx Cardiac Problems: Yes - mitral valve prolapse Hx Hypertension: Yes Hx Asthma: Yes - bronchitis (Zena Trinh) Review of Systems All Other Systems: negative except mentioned in HPI (Zena Trinh) Physical Exam Vital Signs Date Time Temp Pulse Resp B/P (MAP) Pulse Ox O2 Delivery O2 Flow Rate FiO2 06/01/19 17:10 99.9 102 18 130/70 (90) 98 Room Air Sp02 EP Interpretation: reviewed, normal General Appearance: no apparent distress, alert, GCS 15, non-toxic Head: normocephalic, atraumatic Eyes: bilateral eye normal inspection, bilateral eye PERRL ENT: hearing grossly normal, normal voice Neck: full range of motion Respiratory: chest non-tender, lungs clear, normal breath sounds, no respiratory distress, no wheezing, speaking full sentences Cardiovascular #1: regular rate, rhythm Gastrointestinal: normal bowel sounds, soft, non-distended, no guarding, tenderness - diffuse abdominal ttp. Negative macburny's point tenderness. Genitourinary: normal inspection, no CVA tenderness Musculoskeletal: normal range of motion, gait/station normal, non-tender Neurologic: alert, motor strength/tone normal, oriented x3, sensory intact, responsive, speech normal Psychiatric: judgement/insight normal Skin: normal color, normal inspection Lymphatic: no adenopathy (Zena Trinh) Medical Decision Making PA Attestation Dr. Slater is my supervising Physician whom patient management has been discussed with. (Zena Trinh) PA Attestation I participate in the care of this patient along with ANUPAM Matamoros Briefly, this a 19-year-old female presenting with right-sided abdominal pain of 3 days duration[address] Labs and CT are consistent with urinary tract infection and signs of pyelonephritis. She will be treated with IV antibiotics prior to discharge and prescribed oral ciprofloxacin for 1 week. We will follow-up with her PMD and/or TURF MANAGER. Discussed return precautions and need for follow-up. She understands and agrees with the treatment plan. (Khang Slater MD) Diagnostic Impression: Primary Impression: Urinary tract infection Qualified Codes: N30.01 - Acute cystitis with hematuria ER Course 19 YO female presents to the ED C/O 08/03 in severity right sided abdominal pain. She denies N/V/F/C, constipation or diarrhea. She denies dysuria, hematuria or frequency. Pt. reports she is currently on her period. She denies or suspicion of . She reports some lower abdominal tenderness. She denies low back pain. She reports no relief with Motrin or BC powder at home. Ddx considered but are not limited to Diverticulitis, acute appy, diarrhea,UC, PUD, GE, pancreatitis, gallstone, ovarian torsion, ectopic , PID tubo-ovarian abscess. Vital signs: are WNL, pt. is afebrile H&PE are most consistent with acute abdominal pain warranting laboratory work up and diagnostic imaging ORDERS: -CBC: elevated WBC's - CMP: WNL - LIPASE: WNL -UA: + Nitrite Positive -- c/w UTI- elevated inflammatory markers and presence of bacteria -URINE HCG: -CT Abdomen and Pelvis w. IV and oral contrast ED INTERVENTIONS: - 1 Liter NS bolus IV - 1g Rocephin IV DISCHARGE: At this time pt. is stable for d/c to home. Will provide printed patient care instructions, and any necessary prescriptions. Care plan and follow up instructions have been discussed with the patient prior to discharge. Labs Test 06/01/19 17:40 White Blood Count 16.3 K/UL (4.8-10.8) Red Blood Count 4.56 M/UL (4.20-5.40) Hemoglobin 13.5 G/DL (12.0-16.0) Hematocrit 41.5 % (37.0-47.0) Mean Corpuscular Volume 91 FL (80-99) Mean Corpuscular Hemoglobin 29.5 PG (27.0-31.0) Mean Corpuscular Hemoglobin Concent 32.4 G/DL (32.0-36.0) Red Cell Distribution Width 12.1 % (11.6-14.8) Platelet Count 274 K/UL (150-450) Mean Platelet Volume 7.8 FL (6.5-10.1) Neutrophils (%) (Auto) 84.3 % (45.0-75.0) Lymphocytes (%) (Auto) 8.2 % (20.0-45.0) Monocytes (%) (Auto) 6.4 % (1.0-10.0) Eosinophils (%) (Auto) 0.2 % (0.0-3.0) Basophils (%) (Auto) 0.9 % (0.0-2.0) Urine Color Pale yellow Urine Appearance Slightly cloudy Urine pH 6 (4.5-8.0) Urine Specific [place] 1.010 (1.005-1.035) Urine Protein 2+ (NEGATIVE) Urine Glucose (UA) Negative (NEGATIVE) Urine Ketones 2+ (NEGATIVE) Urine Blood 2+ (NEGATIVE) Urine Nitrite Positive (NEGATIVE) Urine Bilirubin Negative (NEGATIVE) Urine Urobilinogen Normal MG/DL (0.0-1.0) Urine Leukocyte Esterase 3+ (NEGATIVE) Urine RBC 10-15 /HPF (0 - 2) Urine WBC 60-80 /HPF (0 - 2) Urine Squamous Epithelial Cells Few /LPF (NONE/OCC) Urine Bacteria Many /HPF (NONE) Urine Other Casts 0-2 /LPF (NONE) Urine HCG, Qualitative Negative (NEGATIVE) Sodium Level 135 MMOL/L (136-145) Potassium Level 4.0 MMOL/L (3.5-5.1) Chloride Level 99 MMOL/L (98-107) Carbon Dioxide Level 26 MMOL/L (21-32) Anion Gap 10 mmol/L (5-15) Blood Urea Nitrogen 5 mg/dL (7-18) Creatinine 0.8 MG/DL (0.55-1.30) Estimat Glomerular Filtration Rate > 60 mL/min (>60) Glucose Level 94 MG/DL (74-106) Calcium Level 9.6 MG/DL (8.5-10.1) Total Bilirubin 0.5 MG/DL (0.2-1.0) Aspartate Amino Transf (AST/SGOT) 15 U/L (15-37) Alanine Aminotransferase (ALT/SGPT) 22 U/L (12-78) Alkaline Phosphatase 84 U/L (46-116) Total Protein 7.9 G/DL (6.4-8.2) Albumin 4.6 G/DL (3.4-5.0) Globulin 3.3 g/dL Albumin/Globulin Ratio 1.4 (1.0-2.7) Lipase 55 U/L (73-393) Serum Alcohol < 3 mg/dL (Zena Trinh) CT/MRI/US Diagnostic Results CT/MRI/US Diagnostic Results : Imaging Test Ordered: CT Abdomen and Pelvis with and Without contrast. (Zena Trinh) CT/MRI/US Diagnostic Results : Impression Preliminary Findings Only See Final Report For Complete Findings CT ABDOMEN & PELVIS With Contrast: Comparison CT abdomen pelvis 01/19/2019. Small amount free fluid in the pelvis. Appendix is within normal limits. There is a cyst in the upper pole right kidney. There is a new focus of peripheral wedge-shaped low attenuation in the upper pole of the right kidney. No hydronephrosis. Otherwise abdominal organs are within normal limits. There is some fluid in the colon. No bowel obstruction. No pericolonic inflammatory changes. Impression: Findings suspicious for right pyelonephritis. Radiologist: Jose Truong MD Study ready at 20:15 and initial results transmitted at 20:23 (Khang Slater MD) Last Vital Signs Date Time Temp Pulse Resp B/P (MAP) Pulse Ox O2 Delivery O2 Flow Rate FiO2 06/01/19 17:17 88 18 Room Air 06/01/19 17:17 99.6 126/73 98 (Zena Trinh) Disposition: HOME, SELF-CARE Condition: Stable Scripts Ciprofloxacin Hcl* (CIPROFLOXACIN HCL*) 500 Mg Tablet 500 MG ORAL Q12H, #14 TAB 0 Refills Prov: Khang Slater MD 06/01/19 Referrals: NOT CHOSEN IPA/,REFERRING (PCP) Additional Instructions: Take medications as directed. Follow up with a Primary Care Provider in 3-5 days, even if your symptoms have resolved. --Please review list of primary care clinics, if you do not already have a primary care provider Return sooner to ED if new symptoms occur, or current symptoms become worse. - Please note that this Emergency Department Report was dictated using [employer] machine operator technology software, occasionally this can lead to erroneous entry secondary to interpretation by the dictation equipment. Zena Trinh Jun 01, 2019 19:10 Khang Slater MD Jun 01, 2019 20:32
--- NOTE | 2019-06-01 19:12 | NUR ---
HAND-OFF: Report given to TOBIN Weiss. waiting for CT scan.
--- NOTE | 2019-06-01 19:20 | NUR ---
ED Nurse Note: Patient is resting comfortably attempting to finish the oral contrast. Will continue to monitor for abdominal CT.
--- NOTE | 2019-06-01 19:56 | NUR ---
ED Nurse Note: Patient went down for CT.
[2019-06-01] MEDS ORDERED: Ketorolac 30mg Inj IV ONE (20:00)
--- NOTE | 2019-06-01 20:10 | NUR ---
ED Nurse Note: Patient returned from CT without incident. Patient is talking calmly on her phone. IV fluid bolus running with 400cc left. Will continue to monitor for CT results reading.
--- NOTE | 2019-06-01 20:24 | Diagnostic Imaging Report ---
Clinical Indication: Right-sided abdominal pain, 6 out of 10 in severity Technique: Patient given oral contrast. IV administration nonionic contrast. Venous phase spiral acquisition obtained through the abdomen and pelvis. Multiplanar reconstructions were generated. Total dose length product 173 mGycm. CTDIvol(s) 3 mGy. Dose reduction achieved using automated exposure control Comparison: 01/19/2019 Findings: There is a focal area of diminished perfusion in the upper pole of the right kidney which is not evident previously. No hydronephrosis or hydroureter is demonstrated. A subcentimeter low-attenuation lesion which is too small to characterize is also seen in the upper pole. No renal or ureteral calculi. The bladder is mildly distended, otherwise unremarkable. There is a small amount of free fluid in the pelvis. What is probably a normal appendix is demonstrated. This is less well-visualized than on the prior study, however. There is no evidence of colonic diverticulosis or diverticulitis. No small bowel distention or small bowel wall thickening. Ingested contrast has traversed nearly the entirety of small bowel, reaches the terminal ileum. Distal esophagus, stomach, duodenum are unremarkable. The liver, gallbladder, bile ducts, pancreas, spleen, adrenals are unremarkable. No retroperitoneal or mesenteric mass or adenopathy. No pelvic mass or adenopathy. The included lung bases are clear. The bones are unremarkable Impression: Focal area of diminished perfusion in the upper pole right kidney, suspicious for an area of focal nephritis. Correlate with clinical and laboratory findings Small amount of free pelvic fluid, most likely physiologic Subcentimeter low-attenuation right upper pole renal lesion, stable and presumably benign simple cyst This agrees with the preliminary interpretation provided overnight by [facility] teleradiology service. The CT scanner at [facility] is accredited by the [employer] and the scans are performed using protocols designed to limit radiation exposure to as low as reasonably achievable to attain images of sufficient resolution adequate for diagnostic evaluation.
[2019-06-01] MEDS ORDERED: CIPROFLOXACIN500 M2 ORAL (20:31)
--- NOTE | 2019-06-01 20:55 | NUR ---
ED Nurse Note: Patient cleared for discharge, verbalized understanding of discharge instructions. ID band removed, IV removed without complication. Patient is ambulatory with steady gait and A&Ox4. Patient departed with all belongings.
[2019-06-01 20:59] VITALS: BP 126/73
== END 2019-06-01 20:55 | disposition home or self-care (01) ==
LOC: EMR 17:25
DX: N30.01 Acute cystitis with hematuria (principal); I10 Essential (primary) hypertension; N28.1 Cyst of kidney, acquired
CPT/HCPCS: 36415; 74177; 80053; 81003; 81025; 83690; 85025; 87086; 87181; 96365; 96375; G0480; J0696; J1885; J7030; Q9967; Z7502; 99284

== ENCOUNTER 2019-08-12 16:29 | Emergency (ER) | payer MEDICAID ==
[~2019-08-12] VITALS: Ht 154.9 cm; Wt 47.6 kg
[~2019-08-12 16:29] MED LIST changes: +CIPROFLOXACIN500 M2 ORAL
--- NOTE | 2019-08-12 17:04 | Emergency Room Report ---
History of Present Illness General Chief Complaint: Abdominal Pain Source: Patient Present Illness HPI Disclaimer: Please note that this report is being documented using [employer] technology. This can lead to erroneous entry secondary to incorrect interpretation by the dictating instrument. HPI: 19 female with a history of alcohol dependence, PCOS presents for evaluation of abdominal pain. She reports 3 to 4 days of worsening left lower quadrant abdominal pain that is sharp currently 8/10. Denies exacerbating or relieving factors. She denies dysuria, hematuria but is on her menses starting 2 days ago. She denies vaginal discharge. Reports recent unprotected sexual intercourse. Is not on control stating it did not help her PCO S. She does not follow regularly with WEIGHT AND TEST BAR CLERK but has seen several in the area. Denies fever, chills, chest pain, palpitations, shortness of breath, nausea, vomiting today but did have vomiting 2 days ago. Denies diarrhea. PMH: PCOS PSH: Reviewed Allergies: Denied Social Hx: Daily alcohol use Allergies: Coded Allergies: No Known Allergies (Unverified , 01/20/16) COVID-19 Screening Contact w/high risk pt: No Recent Travel to affected area: No Experienced COVID-19 symptoms?: No COVID-19 Testing performed NEPHROLOGIST: No Patient History Last Menstrual Period: 08/09/19 Now: No Nursing Documentation-PMH Past Medical History: No History, Except For Hx Cardiac Problems: Yes - mitral valve prolapse Hx Hypertension: Yes Hx Asthma: Yes - bronchitis Review of Systems All Other Systems: negative except mentioned in HPI Physical Exam Vital Signs Date Time Temp Pulse Resp B/P (MAP) Pulse Ox O2 Delivery O2 Flow Rate FiO2 08/12/19 16:39 98.6 98 16 161/114 (130) 95 Room Air General: Awake and alert, no acute distress HEENT: NC/AT. EOMI. Cardiovascular: RRR. S1 and S2 normal. No murmur appreciated Resp: Normal work of breathing. No cough, wheezing or crackles appreciated Abdomen: Abdomen is soft, nondistended. Tender palpation in the suprapubic and left lower quadrant region without palpable mass. No peritoneal signs. No tenderness in the upper quadrants. There is mild tenderness in the right lower quadrant without rebound. No flank tenderness. Skin: Intact. No abrasions, laceration or rash over the exposed skin MSK: Normal tone and bulk. Moving all extremities. No obvious deformity. Neuro: Awake and alert. Mentating appropriately. Medical Decision Making Diagnostic Impression: Primary Impression: UTI (urinary tract infection) Additional Impressions: Asthma Nabothian follicles on cervix ER Course Is a 19-year-old female presenting for evaluation of left lower quadrant abdominal pain of 3 to 4 days. Differential includes was not limited to UTI, pyelonephritis, diverticulitis, ovarian cyst, ovarian torsion, TOA, PID, , ectopic , alcoholic gastritis, gastroenteritis, pancreatitis , nephrolithiasis to name a few. She arrives with stable vital signs though is tender lower quadrants. She states this is consistent with her prior PCOS episodes. Will obtain broad labs and ultrasound. Discussed the patient's daily alcohol use but she states that at this moment she is not interested in stopping or speaking with anyone about her dependence at this time. 1800: Ultrasound shows multiple follicles but good color flow, no abscess, no other abnormalities after nabothian cyst on the cervix seen on prior ultrasound. Patient urinalysis still consistent with urinary tract infection though improved from last time. Review of sensitivity showed that there was resistance to the ciprofloxacin she was discharged on. We will switch to Macrobid and she was given a dose of IV Zosyn prior to discharge. She has no fever, no flank pain no other clinical signs of pyelonephritis at this time. Patient would like to be discharged home. She is asking for refill of albuterol inhaler which I will provide. Discussed reasons to return to the emergency department need to follow-up with WEIGHT AND TEST BAR CLERK. She understands and agrees with this treatment plan. Laboratory Tests Test 08/12/19 17:06 White Blood Count 5.8 K/UL (4.8-10.8) Red Blood Count 4.58 M/UL (4.20-5.40) Hemoglobin 13.8 G/DL (12.0-16.0) Hematocrit 42.9 % (37.0-47.0) Mean Corpuscular Volume 94 FL (80-99) Mean Corpuscular Hemoglobin 30.0 PG (27.0-31.0) Mean Corpuscular Hemoglobin Concent 32.0 G/DL (32.0-36.0) Red Cell Distribution Width 14.5 % (11.6-14.8) Platelet Count 302 K/UL (150-450) Mean Platelet Volume 6.2 FL (6.5-10.1) L Neutrophils (%) (Auto) 56.6 % (45.0-75.0) Lymphocytes (%) (Auto) 34.1 % (20.0-45.0) Monocytes (%) (Auto) 7.7 % (1.0-10.0) Eosinophils (%) (Auto) 0.8 % (0.0-3.0) Basophils (%) (Auto) 0.8 % (0.0-2.0) Urine Color Pale yellow Urine Appearance Slightly cloudy Urine pH 6.5 (4.5-8.0) Urine Specific [place] 1.010 (1.005-1.035) Urine Protein Negative (NEGATIVE) Urine Glucose (UA) Negative (NEGATIVE) Urine Ketones Negative (NEGATIVE) Urine Blood 5+ (NEGATIVE) H Urine Nitrite Negative (NEGATIVE) Urine Bilirubin Negative (NEGATIVE) Urine Urobilinogen Normal MG/DL (0.0-1.0) Urine Leukocyte Esterase 1+ (NEGATIVE) H Urine RBC 15-20 /HPF (0 - 2) H Urine WBC 5-10 /HPF (0 - 2) H Urine Squamous Epithelial Cells Many /LPF (NONE/OCC) H Urine Bacteria Moderate /HPF (NONE) H Urine HCG, Qualitative Negative (NEGATIVE) Sodium Level 138 MMOL/L (136-145) Potassium Level 3.6 MMOL/L (3.5-5.1) Chloride Level 103 MMOL/L (98-107) Carbon Dioxide Level 26 MMOL/L (21-32) Anion Gap 9 mmol/L (5-15) Blood Urea Nitrogen 10 mg/dL (7-18) Creatinine 0.8 MG/DL (0.55-1.30) Estimated Glomerular Filtration Rate > 60 mL/min (>60) Glucose Level 101 MG/DL (74-106) Calcium Level 9.4 MG/DL (8.5-10.1) Total Bilirubin 0.5 MG/DL (0.2-1.0) Aspartate Amino Transferase (AST) 25 U/L (15-37) Alanine Aminotransferase (ALT) 24 U/L (12-78) Alkaline Phosphatase 63 U/L (46-116) Total Protein 7.8 G/DL (6.4-8.2) Albumin 4.2 G/DL (3.4-5.0) Globulin 3.6 g/dL Albumin/Globulin Ratio 1.2 (1.0-2.7) Lipase 170 U/L (73-393) Last Vital Signs Date Time Temp Pulse Resp B/P (MAP) Pulse Ox O2 Delivery O2 Flow Rate FiO2 08/12/19 16:39 98.6 98 16 161/114 (130) 95 Room Air Disposition: HOME, SELF-CARE Condition: Stable Scripts Nitrofurantoin Monohyd/M-Cryst* (MACROBID 100 MG*) 100 Mg Capsule 100 MG ORAL EVERY 12 HOURS for 5 Days, #10 CAP Prov: Khang Slater MD 08/12/19 Albuterol Sulfate (VENTOLIN HFA) 18 Gm Hfa.aer.ad 2 PUFFS INH EVERY 6 HOURS, #18 GM 0 Refills Prov: Khang Slater MD 08/12/19 Khang Slater MD Aug 12, 2019 17:04
[2019-08-12 17:12] VITALS: BP 155/103
[2019-08-12 17:32] LABS: BASOPHILS % (AUTO) 0.8 % (0.0-2.0); EOSINOPHILS % (AUTO) 0.8 % (0.0-3.0); HEMATOCRIT 42.9 % (37.0-47.0); HEMOGLOBIN 13.8 G/DL (12.0-16.0); LYMPHOCYTES % (AUTO) 34.1 % (20.0-45.0); MEAN CORPUSCULAR VOLUME 94 FL (80-99); MONOCYTES % (AUTO) 7.7 % (1.0-10.0); NEUTROPHILS % (AUTO) 56.6 % (45.0-75.0); PLATELET COUNT 302 K/UL (150-450); RED BLOOD COUNT 4.58 M/UL (4.20-5.40); RED CELL DISTRIBUTION WIDTH 14.5 % (11.6-14.8); WHITE BLOOD COUNT 5.8 K/UL (4.8-10.8)
[2019-08-12 17:34] LABS: APPEARANCE,URINE SLIGHTLY CLOUDY; BILIRUBIN, URINE NEGATIVE (NEGATIVE); COLOR,URINE PALE YELLOW; GLUCOSE, URINE (UA) NEGATIVE (NEGATIVE); KETONES,URINE NEGATIVE (NEGATIVE); LEUKOCYTE ESTERASE ,URINE 1+ (NEGATIVE); NITRITE,URINE NEGATIVE (NEGATIVE); PH,URINE 6.5 (4.5-8.0); PROTEIN,URINE NEGATIVE (NEGATIVE); UROBILINOGEN,URINE NORMAL MG/DL (0.0-1.0)
[2019-08-12 17:47] LABS: ANION GAP 9 mmol/L (5-15); BLOOD UREA NITROGEN 10 mg/dL (7-18); CALCIUM 9.4 MG/DL (8.5-10.1); CARBON DIOXIDE 26 MMOL/L (21-32); CHLORIDE 103 MMOL/L (98-107); CREATININE 0.8 MG/DL (0.55-1.30); POTASSIUM 3.6 MMOL/L (3.5-5.1); SODIUM 138 MMOL/L (136-145)
[2019-08-12 17:51] LABS: ALANINE AMINOTRANSFERASE 24 U/L (12-78); ALBUMIN 4.2 G/DL (3.4-5.0); ALBUMIN/GLOBULIN RATIO 1.2 (1.0-2.7); ALKALINE PHOSPHATASE 63 U/L (46-116); ASPARTATE AMINO TRANSFERASE 25 U/L (15-37); BILIRUBIN,TOTAL 0.5 MG/DL (0.2-1.0)
[2019-08-12] MEDS ORDERED: NITROFURANTOIN100 M2 ORAL (18:15)
[2019-08-12] MEDS ORDERED: Piperacillin/Tazobactam 3.375 GM in NS 110 ML IVPB ONE (18:15)
[2019-08-12] MEDS ORDERED: VENTOLIN HFA18 GM INH (18:15)
--- NOTE | 2019-08-12 18:42 | Diagnostic Imaging Report ---
EXAM: US Pelvis Transabdominal and Transvaginal, Complete CLINICAL HISTORY: ABD PAIN TECHNIQUE: Real-time complete transabdominal and transvaginal pelvic ultrasound with image documentation. Transvaginal imaging was used for better evaluation of the endometrium and adnexa. COMPARISON: Ultrasound pelvis on 10/14/2017. CT abdomen/pelvis on 06/01/2019. FINDINGS: Uterus: Retroverted uterus measuring 5.6 x 2.8 x 4.2. Nabothian cysts in the cervix. Endometrium measures 8.0 mm. Right ovary: Measures 4.1 x 1.8 x 4.1 cm. Normal appearance with multiple follicles. Normal color Doppler flow. Left ovary: Measures 3.9 x 1.8 x 4.0 cm. Normal appearance with multiple follicles. Normal color Doppler flow. Other: No free fluid. No adnexal mass. IMPRESSION: No acute abnormality.
--- NOTE | 2019-08-12 18:43 | Diagnostic Imaging Report ---
EXAM: US Pelvis Transabdominal and Transvaginal, Complete CLINICAL HISTORY: ABD PAIN TECHNIQUE: Real-time complete transabdominal and transvaginal pelvic ultrasound with image documentation. Transvaginal imaging was used for better evaluation of the endometrium and adnexa. COMPARISON: None FINDINGS: Uterus: Retroverted uterus measuring 5.6 x 2.8 x 4.2. Nabothian cysts in the cervix. Endometrium measures 8.0 mm. Right ovary: Measures 4.1 x 1.8 x 4.1 cm. Normal appearance with multiple follicles. Normal color Doppler flow. Left ovary: Measures 3.9 x 1.8 x 4.0 cm. Normal appearance with multiple follicles. Normal color Doppler flow. Other: No free fluid. No adnexal mass. IMPRESSION: No acute abnormality.
[2019-08-12 19:01] VITALS: BP 137/89
== END 2019-08-12 19:03 | disposition home or self-care (01) ==
LOC: EMR 17:13
DX: N39.0 Urinary tract infection, site not specified (principal); N88.8 Other specified noninflammatory disorders of cervix uteri; F10.20 Alcohol dependence, uncomplicated; E28.2 Polycystic ovarian syndrome; J45.909 Unspecified asthma, uncomplicated; I34.1 Nonrheumatic mitral (valve) prolapse; Y90.9 Presence of alcohol in blood, level not specified
CPT/HCPCS: 36415; 76830; 76856; 80053; 81003; 81025; 83690; 85025; 87086; 87181; 96361; 96365; 96375; J2405; J2543; J7030; Z7502; 99284

== ENCOUNTER 2020-01-21 12:03 | Emergency (ER) | payer MEDICAID ==
[~2020-01-21] VITALS: Ht 157.5 cm; Wt 49.9 kg
[~2020-01-21 12:03] MED LIST changes: +NITROFURANTOIN100 M2 ORAL
[2020-01-21 12:59] LABS: APPEARANCE,URINE SLIGHTLY CLOUDY; BILIRUBIN, URINE NEGATIVE (NEGATIVE); COLOR,URINE PALE YELLOW; GLUCOSE, URINE (UA) NEGATIVE (NEGATIVE); KETONES,URINE NEGATIVE (NEGATIVE); LEUKOCYTE ESTERASE ,URINE 1+ (NEGATIVE); NITRITE,URINE NEGATIVE (NEGATIVE); PH,URINE 7 (4.5-8.0); PROTEIN,URINE NEGATIVE (NEGATIVE); UROBILINOGEN,URINE NORMAL MG/DL (0.0-1.0)
--- NOTE | 2020-01-21 13:26 | Emergency Room Report ---
History of Present Illness General Chief Complaint: Female Urogenital Problems Present Illness HPI 19-year-old female presents to the emergency department complaining of 5 out of 10 severity lower abdominal pain that she describes as constant and dull in nature in addition to slight amount of white vaginal discharge x2 days. Patient reports she recently found out that her partner has been seeing other people and she is concerned about STDs. She does have a history of ovarian cyst and initially she thought this could be the source of her pain however she still has STD concern. She denies recent antibiotic use. She denies pain with intercourse. She denies fevers or chills, nausea, vomiting or suspicion of . She denies genital lesions/rashes/sores. Denies swollen tender lymph nodes. Denies joint pain. 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 Patient History Past Medical History: see triage record Past Surgical History: none Pertinent Family History: none Last Menstrual Period: 01/10/2020 Now: No Reviewed Nursing Documentation: PMH: Agreed; PSxH: Agreed Nursing Documentation-PMH Hx Cardiac Problems: Yes - mitral valve prolapse Hx Hypertension: Yes Hx Asthma: Yes - bronchitis Review of Systems All Other Systems: negative except mentioned in HPI Physical Exam Vital Signs Date Time Temp Pulse Resp B/P (MAP) Pulse Ox O2 Delivery O2 Flow Rate FiO2 01/21/20 12:31 97.9 86 16 147/106 (120) 96 Room Air Sp02 EP Interpretation: reviewed, normal General Appearance: no apparent distress, alert, GCS 15, non-toxic Head: normocephalic, atraumatic Eyes: bilateral eye normal inspection, bilateral eye PERRL ENT: hearing grossly normal, normal voice Neck: full range of motion Respiratory: lungs clear, normal breath sounds, speaking full sentences Cardiovascular #1: regular rate, rhythm Gastrointestinal: normal bowel sounds, non tender, soft, non-distended, no guarding Rectal: deferred Genitourinary: normal inspection, no CVA tenderness, adnexa normal, other - Scant white thin vaginal discharge present in the vault. No CMT, no strawberry cervix. Musculoskeletal: back normal, normal range of motion, gait/station normal, non- tender Neurologic: alert, motor strength/tone normal, oriented x3, sensory intact, responsive, speech normal Psychiatric: judgement/insight normal Skin: no rash, normal color Lymphatic: no adenopathy Medical Decision Making PA Attestation Dr. Spivey Is my supervising Physician whom patient management has been discussed with. Diagnostic Impression: Primary Impression: Vaginitis Qualified Codes: N76.0 - Acute vaginitis Additional Impression: Contact with or exposure to venereal diseases ER Course 19-year-old female presents to the emergency department complaining of 5 out of 10 severity lower abdominal pain that she describes as constant and dull in nature in addition to slight amount of white vaginal discharge x2 days. Patient reports she recently found out that her partner has been seeing other people and she is concerned about STDs. She does have a history of ovarian cyst and initially she thought this could be the source of her pain however she still has STD concern. She denies recent antibiotic use. She denies pain with intercourse. She denies fevers or chills, nausea, vomiting or suspicion of . She denies genital lesions/rashes/sores. Denies swollen tender lymph nodes. Denies joint pain. Ddx considered but are not limited to UTi , STI, G & C, trichomonas, Vaginitis, cervicitis, bartholins gland cyst or cellulitis. Vital signs: are WNL, pt. is afebrile H&PE are most consistent with vaginitis ORDERS: - UA: WNL -Urine Hcg: Negative -Wet [place]: unremarkable ED INTERVENTIONS: -250mg Rocephin IM -1g Azithromycin PO DISCHARGE: At this time pt. is stable for d/c to home. Will provide printed p atient care instructions, and any necessary prescriptions. Care plan and follow up instructions have been discussed with the patient prior to discharge. Labs Test 01/21/20 12:30 Urine Color Pale yellow Urine Appearance Slightly cloudy Urine pH 7 (4.5-8.0) Urine Specific [place] 1.010 (1.005-1.035) Urine Protein Negative (NEGATIVE) Urine Glucose (UA) Negative (NEGATIVE) Urine Ketones Negative (NEGATIVE) Urine Blood Negative (NEGATIVE) Urine Nitrite Negative (NEGATIVE) Urine Bilirubin Negative (NEGATIVE) Urine Urobilinogen Normal MG/DL (0.0-1.0) Urine Leukocyte Esterase 1+ (NEGATIVE) Urine RBC 0 /HPF (0 - 2) Urine WBC 0-2 /HPF (0 - 2) Urine Squamous Epithelial Cells Few /LPF (NONE/OCC) Urine Bacteria Occasional /HPF (NONE) Urine HCG, Qualitative Negative (NEGATIVE) Last Vital Signs Date Time Temp Pulse Resp B/P (MAP) Pulse Ox O2 Delivery O2 Flow Rate FiO2 01/21/20 12:31 97.9 86 16 147/106 (120) 96 Room Air Disposition: HOME, SELF-CARE Condition: Stable Patient Instructions: Vaginitis Additional Instructions: Take medications as directed. Follow up with a Primary Care Provider in 3-5 days, even if your symptoms have resolved. Return sooner to ED if new symptoms occur, or current symptoms become worse. - Please note that this Emergency Department Report was dictated using [employer] technology software, occasionally this can lead to erroneous entry secondary to interpretation by the dictation equipment. Zena Trinh Jan 21, 2020 13:26
[2020-01-21] MEDS ORDERED: Azithromycin 250mg tab ORAL ONE (13:30)
[2020-01-21] MEDS ORDERED: Lidocaine 1% MPF 10mg/ml 5ml INJ ONE (13:30)
[2020-01-21 19:16] VITALS: BP 147/106
== END 2020-01-21 15:00 | disposition home or self-care (01) ==
LOC: EMR 14:43
DX: N76.0 Acute vaginitis (principal); Z20.2 Contact with and (suspected) exposure to infections with a predominantly sexual mode of transmission; I11.9 Hypertensive heart disease without heart failure; J45.909 Unspecified asthma, uncomplicated
CPT/HCPCS: 81003; 81025; 87210; 96372; J0696; Q0144; Z7502; 99283

== ENCOUNTER 2020-03-26 23:13 | Emergency (ER) | payer MEDICAID ==
[~2020-03-26] VITALS: Ht 154.9 cm; Wt 49.9 kg
--- NOTE | 2020-03-26 23:55 | NUR ---
ED Nurse Note: Pt comes into ED c/o abdominal pain and nausea for 3 days. 5/10 pain. Pt is A&Ox3, resting comfortably on stretcher, breathing without complications on RA. IV 20g est in left AC. Labs collected and sent to lab. Will continue to monitor.
--- NOTE | 2020-03-26 23:58 | Emergency Room Report ---
History of Present Illness General Chief Complaint: Abdominal Pain Source: Patient, Medical Record Present Illness HPI This is a 19-year-old female with history high blood pressure. She presents with 2 plane abdominal pain. Onset for last 3 days. Pain is diffuse in nature. Sharp and crampy. 8 out of 10. No radiation. No fever chills. She has nausea vomiting and diarrhea. Vomiting is nonbloody nonbilious. Diarrhea is watery. Unable to keep anything down. Denies any other complaint. No cough or congestion. 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 COVID-19 Screening: Negative COVID-19 COVID-19 Testing Source: 02-29-2020 Patient History Past Medical History: see triage record, old chart reviewed, HTN Past Surgical History: none Pertinent Family History: none Social History: Denies: smoking Last Menstrual Period: 03/03/2020 Now: No Immunizations: other Reviewed Nursing Documentation: PMH: Agreed; PSxH: Agreed Nursing Documentation-PMH Hx Cardiac Problems: Yes - mitral valve prolapse Hx Hypertension: Yes Hx Asthma: Yes - bronchitis Review of Systems Eye: Denies: eye pain, blurred vision ENT: Denies: ear pain, nose congestion, throat swelling Respiratory: Denies: cough, shortness of breath Cardiovascular: Denies: chest pain, palpitations Gastrointestinal: Reports: abdominal pain, diarrhea, nausea, vomiting Musculoskeletal: Denies: back pain, joint pain Skin: Denies: rash Neurological: Denies: headache, numbness Endocrine: Denies: increased thirst, increased urine Hematologic/Lymphatic: Denies: easy bruising All Other Systems: negative except mentioned in HPI Physical Exam Vital Signs Date Time Temp Pulse Resp B/P (MAP) Pulse Ox O2 Delivery O2 Flow Rate FiO2 03/26/20 23:24 98.1 84 16 140/99 (113) 97 Room Air Vitals unremarkable Sp02 EP Interpretation: reviewed, normal General Appearance: well appearing, no apparent distress, alert Head: normocephalic, atraumatic Eyes: bilateral eye PERRL, bilateral eye EOMI ENT: hearing grossly normal, normal pharynx Neck: full range of motion, supple, no meningismus Respiratory: chest non-tender, lungs clear, normal breath sounds Cardiovascular #1: regular rate, rhythm, no murmur Gastrointestinal: normal bowel sounds, no mass, no organomegaly, no bruit, non- distended, tenderness - Mild, diffuse, decreased bowel sounds Musculoskeletal: back normal, normal range of motion, gait/station normal Psychiatric: mood/affect normal Medical Decision Making Diagnostic Impression: Primary Impression: Gastroenteritis Additional Impression: UTI (urinary tract infection) Qualified Codes: N30.00 - Acute cystitis without hematuria ER Course Patient presents with abdominal pain with nausea vomiting and diarrhea. This is consistent with gastroenteritis. Most likely viral in nature. Patient felt bet ter. No evidence of an acute abdomen. She does have a urinary tract infection. Antibiotics given here. She grew ESBL E. coli and also Klebsiella. Will discharge her home on Bactrim and Macrobid. Last Vital Signs Date Time Temp Pulse Resp B/P (MAP) Pulse Ox O2 Delivery O2 Flow Rate FiO2 03/26/20 23:24 98.1 84 16 140/99 (113) 97 Room Air Status: improved Disposition: HOME, SELF-CARE Condition: Stable Scripts Ondansetron (Zofran) 4 Mg Tablet 4 MG ORAL Q6H PRN for Nausea & Vomiting, #10 TAB 0 Refills Prov: Nikolai Troncoso MD 03/27/20 Nitrofurantoin Monohyd/M-Cryst (Nitrofurantoin Arthur-Mcr 100 mg) 100 Mg Capsule 100 MG ORAL Q12H, #14 CAP Prov: Nikolai Troncoso MD 03/27/20 Trimethoprim/Sulfamethoxazole 160/800* (BACTRIM DS TABLET*) 1 Each Tablet 1 TAB ORAL Q12H, #14 TAB 0 Refills Prov: Nikolai Troncoso MD 03/27/20 Referrals: NOT CHOSEN [facility]/,REFERRING (PCP) Patient Instructions: Abdominal Pain, Adult Additional Instructions: Follow up with your doctor in 2 to 3 days. Return if symptoms worsen. Nikolai Troncoso MD Mar 26, 2020 23:58
[2020-03-27] MEDS ORDERED: Ketorolac 30mg Inj IV ONE
[2020-03-27 00:19] LABS: BILIRUBIN, URINE NEGATIVE (NEGATIVE); COLOR,URINE PALE YELLOW; GLUCOSE, URINE (UA) NEGATIVE (NEGATIVE); KETONES,URINE NEGATIVE (NEGATIVE); LEUKOCYTE ESTERASE ,URINE 3+ (NEGATIVE); NITRITE,URINE NEGATIVE (NEGATIVE); PH,URINE 7 (4.5-8.0); PROTEIN,URINE NEGATIVE (NEGATIVE); UROBILINOGEN,URINE NORMAL MG/DL (0.0-1.0)
[2020-03-27 00:20] LABS: EOSINOPHILS % (AUTO) 0.8 % (0.0-3.0); HEMATOCRIT 39.9 % (37.0-47.0); HEMOGLOBIN 13.1 G/DL (12.0-16.0); LYMPHOCYTES % (AUTO) 43.6 % (20.0-45.0); MEAN CORPUSCULAR VOLUME 89 FL (80-99); MONOCYTES % (AUTO) 5.2 % (1.0-10.0); NEUTROPHILS % (AUTO) 49.4 % (45.0-75.0); PLATELET COUNT 250 K/UL (150-450); RED BLOOD COUNT 4.49 M/UL (4.20-5.40); RED CELL DISTRIBUTION WIDTH 11.9 % (11.6-14.8); WHITE BLOOD COUNT 6.7 K/UL (4.8-10.8)
[2020-03-27 00:29] LABS: CALCIUM 9.2 MG/DL (8.5-10.1); CREATININE 1.3 MG/DL (0.55-1.30)
[2020-03-27 00:31] LABS: APPEARANCE,URINE SLIGHTLY CLOUDY
[2020-03-27 00:41] LABS: ALBUMIN/GLOBULIN RATIO 1.2 (1.0-2.7); BILIRUBIN,TOTAL 0.6 MG/DL (0.2-1.0)
[2020-03-27] MEDS ORDERED: cefTRIAXone 1 GM in NS 55 ML IVPB ONE (00:45)
--- NOTE | 2020-03-27 01:09 | NUR ---
ED Nurse Note: Pt continues to rest comfortably on stretcher. Pts labs have returned, medications administered, along with IV fluids and antibiotics. Pt pain is now at 2/10. VS WNL. Will continue to monitor.
[2020-03-27] MEDS ORDERED: MACROBID100 MG ORAL (01:13)
[2020-03-27] MEDS ORDERED: BACTRIM DS TAB1 EAC1 ORAL (01:13)
[2020-03-27] MEDS ORDERED: ZOFRAN4 MG ORAL (01:13)
[2020-03-27 01:15] VITALS: BP 131/82
--- NOTE | 2020-03-27 01:20 | NUR ---
ER DISCHARGE NOTE: Patient is cleared to be discharged per ER MD, pt is aox4, on room air, with stable vital signs. pt was given dc and prescription instructions, pt was able to verbalize understanding, pt id band and iv site removed without complications. pt is able to ambulate with steady gait. pt took all belongings.
== END 2020-03-27 01:20 | disposition home or self-care (01) ==
LOC: EMR 23:41
DX: K52.9 Noninfective gastroenteritis and colitis, unspecified (principal); N30.00 Acute cystitis without hematuria; I10 Essential (primary) hypertension; J45.909 Unspecified asthma, uncomplicated
CPT/HCPCS: 36415; 80053; 81003; 81025; 83690; 85025; 87086; 96361; 96365; 96375; J0696; J1885; J2405; J7030; Z7502; 99284